=== PATIENT | male | born 1980 | race Hispanic/Latino ===

== ENCOUNTER 2019-05-22 17:21 | Inpatient (IN) | payer SELFPAY ==
[2019-05-22] VITALS (7 sets, daily range): BP systolic 123–145; BP diastolic 57–102; PULSE 101–122; RESP 16–20; TEMP 36.4–37.1; O2SAT 98–100; BMI 21.7
--- NOTE | ~2019-05-22 | XR_ITS ---
EXAMINATION: XR chest 2V 05/22/2019 18:57 INDICATION: Nausea, vomiting. History of diabetes. PROCEDURE: 2 view chest COMPARISON: No prior studies for comparison. FINDINGS: The lungs are clear. The cardiomediastinal silhouette is within normal limits. There are no pleural effusions. There is no pneumothorax suspected. IMPRESSION: 1: NO ACUTE CARDIOPULMONARY DISEASE. Reviewed, dictated and finalized at [facility] Reviewed, dictated and finalized at [facility]. TRICAL MECHANICAL TECHNICIAN
[2019-05-22 17:55] LABS: Basophils Absolute Auto 0.1 K/mm3 (0.0-0.1); Basophils Percent Auto 0.7 % (0.2-1.2); Eosinophils Percent Auto 0.1 % (0-4.4); Hematocrit 49.3 % (42.0-52.0); Hemoglobin 16.2 g/dL (14.0-18.0); Immature Granulocyte Absolute 0.11 K/mm3 (0.00-0.031); Immature Granulocyte Percent A 1.1 % (0-0.5); Lymphocytes Absolute Auto 2.61 K/mm3 (0.9-3.2); Lymphocytes Percent Auto 26.8 % (18.3-44.2); Mean Corpuscular HGB Conc 32.9 g/dl (32-36); Mean Corpuscular Hemoglobin 32.2 pg (26-34); Mean Platelet Volume 11.7 fl (7.4-10.4); Monocytes Absolute Auto 0.5 K/mm3 (0.1-0.6); Monocytes Percent Auto 4.8 % (2.6-8.5); Neutrophils Absolute Auto 6.5 K/mm3 (1.3-6.7); Neutrophils Percent Auto 66.5 % (45.5-73.1); Platelet Count Result 413 k/mm3 (150-375); Red Blood Count 5.03 M/mm3 (4.6-6.20); Red Cell Distribution Width 12.8 % (11.5-14.5); White Blood Count 9.7 K/mm3 (4.5-10.0)
--- NOTE | 2019-05-22 17:57 | ED.GENADULT ---
HPI - General Adult General Chief complaint: Nausea/Vomiting/Diarrhea Stated complaint: diabetic, vomiting Time Seen by Provider: 05/22/19 17:45 Source: patient Mode of arrival: ambulatory Limitations: no limitations History of Present Illness HPI narrative: Patient is a 38-year-old male who is diabetic presenting with 1 day duration of intractable emesis with generalized myalgias and headache patient has been without his insulin is a half-way diabetic patient notes feeling fatigued and weak since the vomiting began. Patient denies diarrhea rectal bleeding melena or hematemesis or any recent illness patient is a limited historian secondary to language barrier but does have individuals present who are effectively translating patient denies any alcohol abuse or drug abuse patient has not taken anything for his symptoms and has not been seen for this complaint Onset (ago): hour(s) Location: head Severity: moderate Quality: aching Pain Consistency: constant Relieving factors: none Exacerbating factors: other (Vomiting) Associated symptoms: denies other symptoms, headaches, malaise, nausea/vomiting and weakness Treatments prior to arrival: none Related Data Home Medications Medication Instructions Recorded Confirmed Novolin 70/30 U-100 Insulin 25 unit SUBCUT TID 05/22/19 05/22/19 gabapentin 300 mg PO BID 05/22/19 05/22/19 Allergies Allergy/AdvReac Type Severity Reaction Status Date / Time No Known Allergies Allergy Verified 05/22/19 17:39 Review of Systems Review of Systems: Narrative: CONSTITUTIONAL: Denies fever, chills, or sweats. EYES: Denies redness, or discharge. ENT: Denies rhinorrhea, congestion, sore throat, or otalgia. CARDIOVASCULAR: Denies chest pain RESPIRATORY: Denies cough or dyspnea. GASTROINTESTINAL: Denies abdominal pain, or diarrhea. GENITOURINARY: Denies dysuria or hematuria. SKIN: Denies rash or itching. MUSCULOSKELETAL: Denies back pain, joint pain, or myalgia. NEUROLOGIC: Denies numbness, dizziness PMFSH Past Medical History Medical History (Updated 05/22/19 @ 18:50 by Thomas Frias PA-C) Diabetes mellitus (Acute) Social History Social History (Updated 05/22/19 @ 17:59 by Thomas Frias PA-C) Smoking status: Current some day smoker Gender identity (if verbalized by the patient): Male Exam Narrative: Exam Narrative: GENERAL: Ill-appearing, well-nourished, and in no acute distress. HEAD: Normocephalic, atraumatic. EYES: PERRLA and EOMI. ENT: Nares clear, no rhinorrhea or epistaxis. Mucous membranes moist. Oropharynx without tonsillar hypertrophy exudate or other lesions. NECK: Supple. No adenopathy or masses. No carotid bruits or JVD CHEST: Clear to auscultation. No respiratory distress. No wheezes rales or rhonchi HEART: Tachycardic rate and regular rhythm. Normal peripheral pulses. ABDOMEN: Soft, nontender, nondistended EXTREMITIES: Normal range of motion. No edema. SKIN: Warm, dry, no rash. NEURO: No focal deficits. Alert and oriented x3. Cranial nerves II through XII grossly intact PSYCH: Normal mood and affect. Course Course Emergency Course: Patient in the room in no distress aware of case findings treatment plan and diagnosis Consultations Consultation #1: Spoke with Dr. Colon who will accept to consult on the patient Date: 05/22/19 Time: 18:51 Consultation #2: Discussed case with hospitalist Mere was agreed to accept the patient Date: 05/22/19 Time: 19:16 Vital Signs Vital signs: Vital Signs Temperature 97.6 F 05/22/19 17:33 Pulse Rate 122 H 05/22/19 17:33 Respiratory Rate 18 05/22/19 17:33 Blood Pressure 145/102 H 05/22/19 17:33 Pulse Oximetry 100 05/22/19 17:33 Temperature 97.6 F 05/22/19 17:33 Pulse Rate 122 H 05/22/19 17:33 Respiratory Rate 18 05/22/19 17:33 Blood Pressure 145/102 H 05/22/19 17:33 Pulse Oximetry 100 05/22/19 17:33 Medical Decision Making MDM Narrative Medical decision making narrative: P
[2019-05-22 18:02] LABS: Glucose Point of Care 399 (65-105)
[2019-05-22 18:10] LABS: pH ABG 7.154 (7.350-7.450)
[2019-05-22 18:11] LABS: HCO3 ABG 6.5 mEq/l (22.0-26.0); Oxygen Saturation ABG 97.1 % (95.0-100.0)
[2019-05-22 18:12] LABS: Carboxyhemoglobin 1.4 % THb (0-2.0); Methemoglobin ABG 0.3 %THb (0-1.5); Oxygen Content ABG 21.6 %vol (16.0-22.0); Oxyhemoglobin 95.7 % THb (90.0-100.0); Reduced Hemoglobin 2.6 %THb (0-5.0)
[2019-05-22 18:13] LABS: Device ROOM AIR; Fractional Inspired Oxygen 21 %; PO2 FiO2 Ratio Arterial Blood 5.48 %; Site Drawn LEFT BRACHIAL
[2019-05-22] MEDS: ONDANSETRON INJ 4 MG/2 ML VIAL IV PUSH (18:19)
[2019-05-22] MEDS: FAMOTIDINE 20 MG/2 ML VIAL IV PUSH (18:20)
[2019-05-22] MEDS: SODIUM CHLORIDE 0.9% IV 1,000 ML 999 ML IV CONT ×2 (18:21→19:12)
[2019-05-22 18:23] LABS: Alanine Aminotransferase 22 U/L (4-50); Albumin Level 5.3 g/dL (3.5-5.1); Alkaline Phosphatase 132 U/L (38-126); Aspartate Amino Transferase 18 U/L (17-59); Bilirubin,Total 0.5 mg/dL (0.2-1.3); Blood Urea Nitrogen 15 mg/dL (9-20); Carbon Dioxide 7 mmol/L (22-30); Chloride 100 mmol/L (98-107); Estimated CRCL calculation 61 ml/min; Estimated Glomerular Filt Rate > 60; Glucose 397 mg/dL (75-110); Lipase 44 U/L (23-300); Phosphorus 5.2 mg/dL (2.5-4.5); Potassium 4.6 mmol/L (3.4-5.0); Sodium 138 mmol/L (137-145)
[2019-05-22 18:24] LABS: Lactic Acid Reflex 2.1 mmol/L (0.7-2.1)
[2019-05-22] MEDS: INSULIN HUMAN REGULAR (*BKC) 100 UNITS/ML 6 UNITS IV PUSH (19:13)
[2019-05-22 19:20] LABS: Glucose Point of Care 341 (65-105)
[2019-05-22 20:15] LABS: Glucose Point of Care 280 (65-105)
[2019-05-22 20:51] LABS: Add Urine Microscopic? YES; Appearance Urine Clear (Clear); Bilirubin Urine Negative (Negative); Blood Urine 1+ (Negative); Color Urine Straw (Yellow); Glucose Urine UA 3+ mg/dL (Negative); Ketones Urine 2+ mg/dL (Negative); Leukocyte Esterase Ur Negative LEU/UL (NEGATIVE); Mucus Urine Rare /lpf; Nitrate Urine Negative (Negative); Protein Urine 2+ mg/dL (Negative); RBC Urine 0-2 /hpf (0-2); Specific Grav Ur 1.028 (1.001-1.035); Urobilinogen Urine Negative mg/dL (<2.0); WBC Urine 0-3
[2019-05-22 21:08] LABS: Reflex Lactic Acid Yes or No Add Lactic
--- NOTE | 2019-05-22 21:15 | PM.IMHP ---
H&P: HPI History of Present Illness Chief complaint: Nausea and vomiting. Narrative: Fran Zazueta is a 38 year old male, Montenegrin speaker, with insulin-dependent diabetes who presented to the emergency department earlier this evening via private vehicle for evaluation of nausea and vomiting. For the last 24 hours he has had intractable nausea and vomiting and is now become very weak and fatigued. He has had some hot flashes but no documented fever or chills. He is on insulin at home, and states compliance with that. He does not, however, check his glucose very often. He denies sinus congestion, rhinorrhea, otalgia, and odynophagia. No chest pain or shortness of breath. He denies hematemesis. No diarrhea. No dysuria. No blurry vision. Review of Systems Review of Systems: All systems reviewed & are unremarkable except as noted in HPI and below PMFSH Past Medical History Medical History Type 2 diabetes, uncontrolled, with neuropathy (Acute) Family History Family History Sibling Diabetes mellitus Social History Social History Social History: The patient lives in [place]. He smokes a pack of cigarettes per day. No alcohol or drug abuse. Listed as a full code. Smoking packs per day: 1 Smoking cigarettes per day: 20.0 Smoking status: Current every day smoker Tobacco type: cigarettes Alcohol intake: never Substance use: never Gender identity (if verbalized by the patient): Male Spiritual care concerns: No Agree to blood products: Yes Meds Home Medications and Allergies Home Medications Medication Instructions Recorded Confirmed Type gabapentin 300 mg PO BID 05/22/19 05/22/19 History Novolin 70/30 U-100 Insulin 25 unit SUBCUT BID 05/23/19 05/23/19 History Allergies Allergy/AdvReac Type Severity Reaction Status Date / Time No Known Allergies Allergy Verified 05/22/19 17:39 Vital Signs Vital Signs - 24 hr 05/22/19 17:33 05/22/19 18:06 05/22/19 18:22 Temperature 97.6 F Pulse Rate 122 H 120 H 116 H Respiratory Rate 18 20 17 Blood Pressure 145/102 H 141/57 H Pulse Oximetry 100 99 98 05/22/19 19:09 05/22/19 19:31 Temperature 97.6 F Pulse Rate 113 H Respiratory Rate 18 Blood Pressure 123/71 Pulse Oximetry 98 Exam Narrative: Exam Narrative: General: Well-developed, well-nourished moderately ill-appearing male supine in bed in no acute distress. HEENT: Normocephalic, atraumatic. PERRL, EOMI. Sclerae anicteric. Oral mucosa is dry. Neck: Supple. Respiratory: Lungs are clear to auscultation bilaterally. Cardiovascular: Regular rate and rhythm with S1-S2. 2/6 murmur best heard at left upper sternal border. Gastrointestinal: Abdomen is soft, nontender, and nondistended with positive bowel sounds. Skin: Warm and dry. No rash or lesions on limited exam. Extremities: No cyanosis, clubbing, or edema. Radial and pedal pulses intact. Neurological: Alert. Cranial nerves 2-12 are grossly intact. No gross focal deficits to casual conversation. Psychiatric: Pleasant and cooperative with normal mood and affect. H&P: Results Labs CBC & Chem 7: 05/23/19 04:28 05/23/19 10:52 Labs: Short CBC 05/22/19 Range/Units 17:50 WBC 9.7 (4.5-10.0) K/mm3 Hgb 16.2 (14.0-18.0) g/dL Hct 49.3 (42.0-52.0) % Plt Count 413 H (150-375) k/mm3 BMP 05/22/19 18:04 Sodium 138 Potassium 4.6 Chloride 100 Carbon Dioxide 7 L BUN 15 Creatinine 1.10 Glucose 397 H Calcium 10.0 Liver Function 05/22/19 Range/Units 18:04 Total Bilirubin 0.5 (0.2-1.3) mg/dL AST 18 (17-59) U/L ALT 22 (4-50) U/L Alkaline Phosphatase 132 H (38-126) U/L Albumin 5.3 H (3.5-5.1) g/dL IMAGIN. Chest x-ray: No acute cardiopulmonary disease.
[2019-05-22 21:39] LABS: Glucose Point of Care 244 (65-105)
[2019-05-22 21:44] LABS: Lactic Acid 1.3 mmol/L (0.7-2.1)
[2019-05-22 22:26] LABS: Glucose Point of Care 191 (65-105)
[2019-05-22] MEDS: DEXTROSE 5%/0.45% SOD CHL 1,000 ML 150 ML IV CONT (22:28)
--- NOTE | 2019-05-22 22:43 | ADMGEN ---
This patient, Fran Zazueta, was admitted to Intensive Care Unit-5 at 2100 on 05/22. Patient/family oriented to hospital policies and general routines including ID bracelet, bed and alarms, visiting hours, pain management, procedures, bathroom and other care routines, personal items, smoking policy, room service/diet, and visiting hours. Valuables list has been completed. Information on how to activate the Rapid Response Team has been discussed. Patient/Family are encouraged to report perceived risks to care and to ask questions if they do not understand what they are told or what they should do.
[2019-05-22 22:51] LABS: Hemoglobin A1C 11.2 % (<5.7)
[2019-05-22 23:11] LABS: Glucose Point of Care 164 (65-105)
[2019-05-23] VITALS (9 sets, daily range): BP systolic 87–121; BP diastolic 45–69; PULSE 85–103; RESP 13–17; TEMP 36.3–37.2; O2SAT 99–100; BMI 22.2
[2019-05-23 00:06] LABS: Glucose Point of Care 157 (65-105)
[2019-05-23 00:45] LABS: Blood Urea Nitrogen 14 mg/dL (9-20); Carbon Dioxide 14 mmol/L (22-30); Chloride 111 mmol/L (98-107); Estimated CRCL calculation 92 ml/min; Estimated Glomerular Filt Rate > 60; Glucose 153 mg/dL (75-110); Potassium 3.7 mmol/L (3.4-5.0); Sodium 138 mmol/L (137-145)
[2019-05-23 01:10] LABS: Glucose Point of Care 154 (65-105)
[2019-05-23] MEDS: GABAPENTIN 300 MG CAPSULE PO ×3 (01:15→16:27)
[2019-05-23 02:12] LABS: Glucose Point of Care 133 (65-105)
[2019-05-23 03:02] LABS: Glucose Point of Care 127 (65-105)
[2019-05-23 04:01] LABS: Glucose Point of Care 142 (65-105)
[2019-05-23 04:38] LABS: Basophils Percent Auto 0.4 % (0.2-1.2); Eosinophils Absolute Auto 0.1 K/mm3 (0-0.3); Eosinophils Percent Auto 0.8 % (0-4.4); Hematocrit 36.4 % (42.0-52.0); Hemoglobin 12.6 g/dL (14.0-18.0); Immature Granulocyte Absolute 0.05 K/mm3 (0.00-0.031); Immature Granulocyte Percent A 0.6 % (0-0.5); Lymphocytes Percent Auto 28.9 % (18.3-44.2); Mean Corpuscular HGB Conc 34.6 g/dl (32-36); Mean Corpuscular Hemoglobin 31.9 pg (26-34); Mean Corpuscular Volume 92.2 fl (80-100); Mean Platelet Volume 10.6 fl (7.4-10.4); Monocytes Absolute Auto 0.9 K/mm3 (0.1-0.6); Monocytes Percent Auto 9.9 % (2.6-8.5); Neutrophils Absolute Auto 5.3 K/mm3 (1.3-6.7); Neutrophils Percent Auto 59.4 % (45.5-73.1); Platelet Count Result 292 k/mm3 (150-375); Red Blood Count 3.95 M/mm3 (4.6-6.20); Red Cell Distribution Width 12.3 % (11.5-14.5)
[2019-05-23] MEDS: KCL 20 MEQ/D5/0.45% SOD CHL 1,000 ML 150 ML IV CONT (04:58)
[2019-05-23 05:02] LABS: Glucose Point of Care 107 (65-105)
[2019-05-23 06:12] LABS: Glucose Point of Care 96 (65-105)
[2019-05-23 06:59] LABS: Blood Urea Nitrogen 15 mg/dL (9-20); Calcium 8.8 mg/dL (8.4-10.2); Carbon Dioxide 19 mmol/L (22-30); Chloride 111 mmol/L (98-107); Estimated CRCL calculation 92 ml/min; Estimated Glomerular Filt Rate > 60; Glucose 119 mg/dL (75-110); Potassium 3.6 mmol/L (3.4-5.0); Sodium 138 mmol/L (137-145)
[2019-05-23 07:01] LABS: Glucose Point of Care 104 (65-105)
[2019-05-23 08:14] LABS: Glucose Point of Care 114 (65-105)
[2019-05-23] MEDS: FAMOTIDINE 20 MG/2 ML VIAL IV PUSH (08:30)
[2019-05-23] MEDS: INSULIN GLARGINE (*BKC) 100 UNITS/ML 20 UNITS SUB-Q (08:30)
--- NOTE | 2019-05-23 08:47 | WPDCNINT ---
Assessment and Plan Assessment and plan (1) Diabetic ketoacidosis: Code(s): E11.10 - Type 2 diabetes mellitus with ketoacidosis without coma Status: Acute Assessment and Plan: Improved with insulin infusion and IVF AG closed Start Lantus and SSI and DC insulin infusion Start CLD and advance as tolerated (2) Dehydration: Code(s): E86.0 - Dehydration Status: Acute Assessment and Plan: Improved with IVF VSS (3) Hyperchloremic acidosis: Code(s): E87.2 - Acidosis Status: Acute Assessment and Plan: Change IVF to 1/2 NS with K (4) Smoker: Code(s): F17.200 - Nicotine dependence, unspecified, uncomplicated Status: Acute Assessment and Plan: Encouraged to Quit Consult date: 05/23/19 Time Seen: 07:30 HPI: Fran Zazueta is a 38 year old male who mainly speaks angolan with some azerbaijani and PMH of DM presented with CC of Nausea and vomiting. Tales 70/30 25 units twice a day N/V x 2 days, no hematochezia, no abdominal pain. No aggravating or relieving factors, associated with feeling weak and tired. No other complaints. Diagnosed with DKA and admitted to ICU on insulin drip and IVF. This morning feels better with no complaints at all. N/V has resolved now He denies sinus congestion, rhinorrhea, otalgia, and odynophagia. No chest pain or shortness of breath. He denies hematemesis. No diarrhea. No dysuria. No blurry vision Review of Systems Constitutional: Constitutional: Reports fatigue and Reports weakness Eyes: Eyes: Reports no additional eye complaints ENT: Reports system reviewed and no additional complaints, except as documented Cardiovascular: Cardiovascular: Reports no additional cardiovascular complaints and Denies chest pain Respiratory: Respiratory: Reports no additional respiratory complaints, Denies cough and Denies dyspnea Gastrointestinal: Gastrointestinal: Denies abdominal pain, Denies melena, Denies hematochezia, Denies constipation, Denies diarrhea, Reports nausea and Reports vomiting Genitourinary: Genitourinary: Reports no additional male genitourinary complaints Musculoskeletal: Musculoskeletal: Reports no additional musculoskeletal complaints Integumentary/Breasts: Skin/Breast: Reports system reviewed and no additional complaints, except as docu Neurologic: Reports system reviewed and no additional complaints, except as documented Psychiatric: Psychiatric: Reports no additional psychiatric complaints PMFSH Past Medical History Medical History Type 2 diabetes, uncontrolled, with neuropathy (Acute) Family History Family History Sibling Diabetes mellitus Social History Social History Social History: The patient lives in [place]. He smokes a pack of cigarettes per day. No alcohol or drug abuse. Listed as a full code. Smoking packs per day: 1 Smoking cigarettes per day: 20.0 Smoking status: Current every day smoker Tobacco type: cigarettes Alcohol intake: never Substance use: never Gender identity (if verbalized by the patient): Male Spiritual care concerns: No Agree to blood products: Yes Meds Home Medications and Allergies Home Medications Medication Instructions Recorded Confirmed Type Novolin 70/30 U-100 Insulin 25 unit SUBCUT TID 05/22/19 05/22/19 History gabapentin 300 mg PO BID 05/22/19 05/22/19 History Allergies Allergy/AdvReac Type Severity Reaction Status Date / Time No Known Allergies Allergy Verified 05/22/19 17:39 Vital Signs Vital Signs - 24 hr 05/22/19 17:33 05/22/19 18:06 05/22/19 18:22 Temperature 36.4 C Pulse Rate 122 H 120 H 116 H Respiratory Rate 18 20 17 Blood Pressure 145/102 H 141/57 H Pulse Oximetry 100 99 98 05/22/19 19:09 05/22/19 19:31 05/22/19 21:13 Temperature 36.4 C
[2019-05-23 09:15] LABS: Glucose Point of Care 132 (65-105)
[2019-05-23] MEDS: KCL 20 MEQ/0.45% NS 1,000 ML 100 ML IV CONT ×2 (09:17→16:27)
--- NOTE | 2019-05-23 10:48 | PM.IMPN ---
Progress Note: A&P Assessment and Plan (1) Diabetic ketoacidosis: Code(s): E11.10 - Type 2 diabetes mellitus with ketoacidosis without coma Status: Acute Assessment and Plan: Off drip. Tolerating diet. To medical floor. To medical floor. (2) Dehydration: Code(s): E86.0 - Dehydration Status: Acute Assessment and Plan: Resolved. D/c IVF. (3) Smoker: Code(s): F17.200 - Nicotine dependence, unspecified, uncomplicated Status: Acute Assessment and Plan: Advised smoking cessation. (4) DVT prophylaxis: Code(s): Z29.9 - Encounter for prophylactic measures, unspecified Status: Acute Assessment and Plan: enoxaparin Subjective Interval history: Admitted 05/22 with DKA. Tolerating diet. Denied pain or nausea. Review of Systems Constitutional: Constitutional: Denies chills, Denies fever(s) and Denies headache(s) ENT: Denies dysphagia, Denies headache(s) and Denies epistaxis Cardiovascular: Cardiovascular: Denies chest pain, Denies leg edema, Denies dyspnea, Denies dyspnea on exertion and Denies orthopnea Respiratory: Respiratory: Denies cough, Denies excessive phlegm production, Denies dyspnea, Denies dyspnea on exertion and Denies wheezing Gastrointestinal: Gastrointestinal: Denies abdominal pain, Denies melena, Denies hematochezia, Denies constipation, Denies dysphagia, Denies diarrhea, Denies nausea and Denies vomiting Genitourinary: Genitourinary: Denies hematuria and Denies dysuria Musculoskeletal: Musculoskeletal: Denies back pain and Denies arthralgias Integumentary/Breasts: Skin/Breast: Denies pruritus Neurologic: Denies confusion and Denies headache(s) Psychiatric: Psychiatric: Denies anxiety and Denies confusion Hematologic/Lymphatic: Hematologic/Lymphatic: Denies easy bleeding Allergic/Immunologic: Allergic/Immunologic: Denies wheezing Exam Narrative: Exam Narrative: HEENT: EOMI, PERRL, pharyngeal mucosa pink and intact NECK: No JVD, adenopathy, or thyromegaly CHEST: Clear to auscultation. Normal effort. HEART: NL S1/S2, regular, no murmur ABDOMEN: BS+, soft, nontender, no mass, no bruits EXTREMITIES: No cyanosis, edema, or clubbing NEUROLOGIC: CN intact and symmetric to inspection. MUSCULOSKELETAL: Tone and strength symmetric. PSYCH: Alert. Oriented to person, place, and time. Objective Data Vital Signs Vital Signs: Vital Signs - 24 hr 05/22/19 17:33 05/22/19 18:06 05/22/19 18:22 Temperature 97.6 F Pulse Rate 122 H 120 H 116 H Respiratory Rate 18 20 17 Blood Pressure 145/102 H 141/57 H Pulse Oximetry 100 99 98 05/22/19 19:09 05/22/19 19:31 05/22/19 21:13 Temperature 97.6 F Pulse Rate 113 H 101 H Respiratory Rate 18 18 Blood Pressure 123/71 129/78 Pulse Oximetry 98 98 05/22/19 22:00 05/23/19 00:00 05/23/19 02:00 Temperature 98.7 F 98.7 F Pulse Rate 104 H 98 96 Respiratory Rate 16 14 17 Blood Pressure 129/78 107/66 112/65 Pulse Oximetry 100 100 100 05/23/19 04:00 05/23/19 06:00 05/23/19 08:26 Temperature 99 F 98.4 F Pulse Rate 87 88 Respiratory Rate 15 14 Blood Pressure 115/66 110/69 Pulse Oximetry 100 99 05/23/19 10:19 Temperature Pulse Rate 94 Respiratory Rate Blood Pressure 87/45 L Pulse Oximetry 100 Intake/Output Intake/Output: Intake & Output 05/21/19 05/22/19 05/22/19 05/23/19 00:59 00:59 23:59 23:59 Intake Total 1852.4 Output Total 350 Balance 1502.4 Meds/Results Medications: Active Medications Generic Name Dose Route Start Last Admin Trade Name Freq PRN Reason Stop Dose Admin Dextrose 12.5 gm 05/22/19 21:30 Dextrose 50% Syringe IV PUSH PRN PRN Hypoglycemia Protocol Famotidine 20 mg 05/23/19 09:00 05/23/19 08:30 Pepcid Iv IV PUSH 20 mg Q12HR PAIGE Administration Gabapentin 300 mg 05/22/19 22:40 05/23/19 08:30 Neurontin PO 300 mg BID PAIGE Administration Glucagon 1 mg 05/22/19 21:30 Gl
[2019-05-23 11:13] LABS: Blood Urea Nitrogen 14 mg/dL (9-20); Calcium 8.4 mg/dL (8.4-10.2); Carbon Dioxide 16 mmol/L (22-30); Chloride 105 mmol/L (98-107); Estimated CRCL calculation 93 ml/min; Estimated Glomerular Filt Rate > 60; Glucose 395 mg/dL (75-110); Sodium 133 mmol/L (137-145)
[2019-05-23] MEDS: INSULIN ASPART (*BKC) 100 UNITS/ML SUB-Q ×4 (12:15→17:33)
[2019-05-23 12:29] LABS: Glucose Point of Care 380 (65-105)
--- NOTE | 2019-05-23 13:28 | PC.NURSE ---
Pt. transferred to [facility] via wheelchair at 1326. Pt.stable upon transfer.
--- NOTE | 2019-05-23 14:46 | PC.NURSE ---
Received patient from ICU via wheelchair with ICU staff. Patient awake and alert. Settled into room. No c/o pain and no distress noted. Oriented to unit.
--- NOTE | 2019-05-23 17:27 | PM.DS ---
DS: Diagnosis Admitting Diagnosis Admitting Diagnosis: Type 2 diabetes mellitus with ketoacidosis without coma Discharge Diagnosis (1) Diabetic ketoacidosis: Code(s): E11.10 - Type 2 diabetes mellitus with ketoacidosis without coma Status: Acute Assessment and Plan: Admitted May 22. Discharge May 23, 2019. Patient admitted to missing doses of insulin at home. Treated with insulin drip and IV fluids. Anion gap resolved. By morning of May 23 Off drip. Tolerating diet. Tolerated diet and wished to go home due to illness in the family. (2) Dehydration: Code(s): E86.0 - Dehydration Status: Acute Assessment and Plan: Resolved. D/c IVF. (3) Smoker: Code(s): F17.200 - Nicotine dependence, unspecified, uncomplicated Status: Acute Assessment and Plan: Advised smoking cessation. (4) DVT prophylaxis: Code(s): Z29.9 - Encounter for prophylactic measures, unspecified Status: Acute Assessment and Plan: enoxaparin DS: Summary Time Spent with Patient Time attestation: Total time spent providing and/or coordinating discharge services: Exam Narrative: Exam Narrative: HEENT: EOMI, PERRL, pharyngeal mucosa pink and intact NECK: No JVD, adenopathy, or thyromegaly CHEST: Clear to auscultation. Normal effort. HEART: NL S1/S2, regular, no murmur ABDOMEN: BS+, soft, nontender, no mass, no bruits EXTREMITIES: No cyanosis, edema, or clubbing NEUROLOGIC: CN intact and symmetric to inspection. MUSCULOSKELETAL: Tone and strength symmetric. PSYCH: Alert. Oriented to person, place, and time. Const: General: No confused Orientation/consciousness: No confused Other: HEENT: EOMI, PERRL, pharyngeal mucosa pink and intact NECK: No JVD, adenopathy, or thyromegaly CHEST: Clear to auscultation. Normal effort. HEART: NL S1/S2, regular, no murmur ABDOMEN: BS+, soft, nontender, no mass, no bruits EXTREMITIES: No cyanosis, edema, or clubbing NEUROLOGIC: CN intact and symmetric to inspection. MUSCULOSKELETAL: Tone and strength symmetric. PSYCH: Alert. Oriented to person, place, and time. HENMT: Other: HEENT: EOMI, PERRL, pharyngeal mucosa pink and intact NECK: No JVD, adenopathy, or thyromegaly CHEST: Clear to auscultation. Normal effort. HEART: NL S1/S2, regular, no murmur ABDOMEN: BS+, soft, nontender, no mass, no bruits EXTREMITIES: No cyanosis, edema, or clubbing NEUROLOGIC: CN intact and symmetric to inspection. MUSCULOSKELETAL: Tone and strength symmetric. PSYCH: Alert. Oriented to person, place, and time. Neuro: General: No confused DS: Data Data Completed and Pending Labs on day of discharge: Labs from last 24 hours 05/23/19 05/23/19 05/23/19 12:07 10:52 09:13 WBC RBC Hgb Hct MCV MCH MCHC RDW Plt Count MPV Immature Gran % (Auto) Neut % (Auto) Lymph % (Auto) [place] % (Auto) Eos % (Auto) Baso % (Auto) Lymph # (Auto) [place] # (Auto) Eos # (Auto) Baso # (Auto) Abs Immat Gran (auto) Absolute Neuts (auto) Absolute Nucleated RBC Nucleated RBC % Puncture Site ABG pH ABG pCO2 ABG pO2 ABG PO2/FiO2 Ratio ABG HCO3 ABG O2 Saturation ABG O2 Content ABG Base Excess ABG Methemoglobin A-a Gradient Oxyhemoglobin Carboxyhemoglobin Reduced Hemoglobin Total Hemoglobin O2 Delivery Device O2 Liters/Min FiO2 Sodium 133 L Potassium 4.0 Chloride 105 Carbon Dioxide 16 L BUN 14 Creatinine 0.70 Estim Creat Clear Calc 93 Estimated GFR > 60 Glucose 395 H POC Capillary Glucose 380 H 132 H Hemoglobin A1c Lactic Acid Calcium 8.4 Phosphorus Magnesium Total Bilirubin AST ALT Alkaline Phosphatase Total Protein Albumin Lipase Beta-Hydroxybutyrate/Acetoacetate Urine Color Urine Appearance Urine pH Ur Specific [place] Urine Prote
[2019-05-23 17:32] LABS: Glucose Point of Care 282 (65-105)
== END 2019-05-23 18:31 | disposition home or self-care (01) | DRG 420 ==
LOC: ANHED 19:32 → ANHICU 20:51 → ANH2MED 05-23 13:08
PROVIDERS: Emergency Medicine Emergency Medical Services; Internal Medicine; Physician Assistant; Admitting Provider Internal Medicine; Emergency Provider Emergency Medicine; Visit Provider Internal Medicine
DX: E10.10 Type 1 diabetes mellitus with ketoacidosis without coma (principal); E86.0 Dehydration; T38.3X6A Underdosing of insulin and oral hypoglycemic [antidiabetic] drugs, initial encounter; E10.40 Type 1 diabetes mellitus with diabetic neuropathy, unspecified; F17.210 Nicotine dependence, cigarettes, uncomplicated; Z28.21 Immunization not carried out because of patient refusal
CPT/HCPCS: 36415; 36600; 71046; 80048; 80053; 81001; 82010; 82375; 82805; 83036; 83050; 83605; 83690; 83735; 84100; 85025; 87040; 87081; 87185; A9270; J0131; J1815; J2405; J3480; J7030